=== PATIENT | male | born 1975 | race African-American/Black ===

== ENCOUNTER 2023-01-10 09:02 | Day surgery (SDC) | payer OTHER ==
[~2023-01-10] VITALS: Ht 170.2 cm; Wt 76.7 kg
[2023-01-10] MEDS ORDERED: LIDOCAINE 2% 100 MG/5 ML UJET TP ONE (09:42)
[2023-01-10] MEDS ORDERED: fentaNYL citrate 0.05 MG/ML VIAL ONE (09:42)
[2023-01-10] MEDS ORDERED: fentaNYL citrate 0.05 MG/ML VIAL IVP ONE (12:00)
== END 2023-01-10 11:05 | disposition home or self-care (01) ==
LOC: MDS 09:02 → MMU 09:03 → MDS 11:05
PROVIDERS: ATTEND Internal Medicine Gastroenterology
DX: R19.5 Other fecal abnormalities (principal); K63.5 Polyp of colon; E78.5 Hyperlipidemia, unspecified; F41.9 Anxiety disorder, unspecified; F17.210 Nicotine dependence, cigarettes, uncomplicated
CPT/HCPCS: 45385; J3010

== ENCOUNTER 2023-03-28 10:37 | Day surgery (SDC) | payer OTHER ==
[~2023-03-28] VITALS: Ht 170.2 cm; Wt 76.7 kg
[2023-03-28] MEDS ORDERED: LIDOCAINE 2% 100 MG/5 ML UJET TP ONE (11:39)
[2023-03-28] MEDS ORDERED: fentaNYL citrate 0.05 MG/ML VIAL ONE (11:39)
[2023-03-28] MEDS ORDERED: fentaNYL citrate 0.05 MG/ML VIAL IVP ONE (14:30)
== END 2023-03-28 12:45 | disposition home or self-care (01) ==
LOC: MDS 10:37 → MMU 10:38 → MDS 12:45
PROVIDERS: ATTEND Internal Medicine Gastroenterology
DX: R19.5 Other fecal abnormalities (principal); K57.30 Diverticulosis of large intestine without perforation or abscess without bleeding; F41.9 Anxiety disorder, unspecified; F17.210 Nicotine dependence, cigarettes, uncomplicated; Z79.899 Other long term (current) drug therapy
CPT/HCPCS: 45378; J3010